=== PATIENT | male | born 2005 | race Caucasian/White ===

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

== ENCOUNTER 2024-03-03 17:04 | Emergency (ER) | payer OTHER, SELFPAY ==
[2024-03-03] VITALS (26 sets, daily range): BP systolic 117–145; BP diastolic 66–99; PULSE 100–132; RESP 17–33; TEMP 37.1; O2SAT 91–100
--- NOTE | ~2024-03-03 | XR_ITS ---
EXAMINATION: XR chest 1V portable DATE: 03/03/2024 18:50 INDICATION: Shortness of breath. TECHNIQUE: A single frontal view of the chest was obtained. COMPARISON: Chest 2 views 12/14/2021 FINDINGS: There is no pneumonia, pleural effusion, or pneumothorax. The heart size is normal. Pneumom ediastinum is noted. IMPRESSION: 1. Pneumomediastinum. Reviewed, dictated and finalized at location E. IMPRESSION: 1. Pneumomediastinum.
--- NOTE | ~2024-03-03 | CT_ITS ---
EXAMINATION: CTA chest PE protocol DATE: 03/03/2024 20:55 INDICATION: Shortness of breath. TECHNIQUE: Computed tomography angiography (CTA) of the chest was performed with 100 mL Omnipaque-350 intravenous contrast timed to evaluate the pulmonary arteries. Coronal maximum intensity projection 3D-reconstructions were created by the technologist. Automated exposure control and iterative reconst ruction technique were employed. The dose-length product was 290.37 mGy-cm. COMPARISON: None. FINDINGS: There are groundglass opacities in the upper lobes adjacent to the mediastinum, likely mild atelectasis. No pleural effusion. The heart size is normal. No pericardial effusion. There is no pul monary embolus. Pneumomediastinum is noted. There are Schmorl's nodes at multiple levels in the spine . IMPRESSION: 1. Pneumomediastinum. 2. No pulmonary embolus. Reviewed, dictated and finalized at location E.
--- NOTE | 2024-03-03 17:08 | ED.ASTHMA ---
HPI - Asthma General Chief Complaint: Asthma Stated Complaint: asthma Time Seen by Provider: 03/03/24 17:06 History of Present Illness HPI Narrative: Patient is a 18 year old male with history of asthma here with shortness of breath. Patient notes symptoms began yesterday. He has had increased wheezing as well as a cough. He has had a subjective fever and nasal congestion. No known sick contacts. He has been doing his rescue treatments at home without improvement. Patient has never required hospitalization or intubation for his asthma. He was diagnosed as an asthmatic as a young child. Last round of oral steroids was about 6 weeks ago. No nausea, vomiting, diarrhea. Related Data Home Medications Medication Instructions Recorded Confirmed albuterol sulfate 90 mcg/actuation 1 inh inhalation QID PRN SOB 12/14/21 aerosol inhaler Allergies Allergy/AdvReac Type Severity Reaction Status Date / Time No Known Allergies Allergy Verified 03/03/24 17:16 Review of Systems Review of Systems: All systems reviewed & are unremarkable except as noted in HPI and below PMFSH Past Medical History Medical History (Updated 03/06/24 @ 15:05 by Lilly Farley MD) Asthma Surgical History Surgical History (Updated 12/14/21 @ 07:56 by Dav Self MD) No history of previous surgery Social History Social History (Updated 12/14/21 @ 07:56 by Dav Self MD) Smoking status: Light tobacco smoker Exam Narrative: GENERAL: Well-appearing, well-nourished, and in mild respiratory distress. HEAD: Normocephalic, atraumatic. EYES: PERRLA and EOMI. ENT: Nares clear. Mucous membranes moist. NECK: Supple. CHEST: Bilateral wheeze, tachypnea, increased work of breathing. HEART: Tachycardic. Normal peripheral pulses. ABDOMEN: Soft, nontender, nondistended. EXTREMITIES: Normal range of motion. No edema. SKIN: Warm, dry, no rash. NEURO: No focal deficits. Alert and oriented x3. PSYCH: Normal mood and affect. Course Course Emergency Course: Chart review performed. Patient here with shortness of breath. Triage vitals normal. One prior visit in our system for asthma. Patient seen evaluated, is in some mild respiratory distress, tachypneic, tachycardic, history most consistent with acute asthma exacerbation. Will additionally do chest x-ray given subjective fever. Viral swab ordered. Will do 1 hour nebulizer as well as steroids, IVF. Patient and mother agreeable to POC. Viral swab negative. CXR shows concern for pneumomediastinum. Will do CT for further imaging. Patient revaluated, much less tachypneic on exam. Dad at bedside concerned for PE given recent drive home [place]. Suspect symptoms are all likely due to asthma however given tachycardia and plan for CT chest will do with contrast. Magnesium ordered. COVID, influenza, RSV negative. WBC of 12.5 which is non specific. Electrolytes normal, normal renal function. CTA of chest shows pneumomediastinum, no PE. On ambulatory pulse ox patient did not desaturate below 93%. Shared decision making between patient and family. Patient and family feel comfortable with patient being discharged home. Will start on prednisone burst as well as refill DuoNebs. Advised to contact primary care doctor tomorrow morning to coordinate close follow-up. Return should symptoms worsen. The results of pertinent diagnostic studies and exam findings were discussed. The patient?s provisional diagnosis and plan of care were discussed with the patient and present family. The patient and/or present family expressed understanding of the diagnosis and plan. The nurse was instructed to provide written instructions and appropriate follow-up information. The patient understands their need and responsibility to obtain additional follow-up as instructed. The risks of medications administered and prescribed were discussed with the patient and family present. Vital Signs Vital signs: Vital Signs Te
[2024-03-03] MEDS: IPRATROPIUM BR 0.02% INH SOLN 0.5 MG/2.5 ML VIAL 1.5 MG INHALATION (17:44)
[2024-03-03] MEDS: ALBUTEROL SULFATE NEB 2.5 MG/3 ML INH 15 MG INHALATION (17:44)
[2024-03-03] MEDS: methylPREDNISolone SOD SUCC 125 MG VIAL IV PUSH (18:13)
[2024-03-03] MEDS: LACTATED RINGERS 1,000 ML 999 ML IV CONT ×2 (18:13→21:38)
[2024-03-03 18:39] LABS: Influenza A QL RT-PCR Negative (Negative); Influenza B QL RT-PCR Negative (Negative); RSV RNA, RT-PCR Negative (Negative); SARS-CoV-2 RNA PCR Negative (Negative)
--- NOTE | 2024-03-03 19:17 | PC.NURSE ---
Report received from KVNG Mccain. Assumed care of patient at this time.
[2024-03-03] MEDS: MAGNESIUM SULF 2 GM/WATER 50ML 2 GM/50 ML BAG IVPB (20:17)
--- NOTE | 2024-03-03 20:33 | PC.NURSE ---
Patient taken to CT via stretcher with extra green top. Patient has IV mag going via pump.
[2024-03-03 20:35] LABS: Basophils Percent Auto 0.2 % (0.2-1.2); Eosinophils Percent Auto 0.2 % (0-4.4); Hematocrit 43.8 % (42.0-52.0); Hemoglobin 14.7 g/dL (14.0-18.0); Immature Granulocyte Absolute 0.02 K/mm3 (0.00-0.031); Immature Granulocyte Percent A 0.2 % (0-0.5); Lymphocytes Absolute Auto 0.48 K/mm3 (0.9-3.2); Lymphocytes Percent Auto 3.9 % (18.3-44.2); Mean Corpuscular HGB Conc 33.6 g/dl (32-36); Mean Corpuscular Hemoglobin 27.7 pg (26-34); Mean Corpuscular Volume 82.5 fl (80-100); Mean Platelet Volume 9.7 fl (7.4-10.4); Monocytes Absolute Auto 0.2 K/mm3 (0.1-0.6); Monocytes Percent Auto 1.6 % (2.6-8.5); Neutrophils Absolute Auto 11.7 K/mm3 (1.3-6.7); Neutrophils Percent Auto 93.9 % (45.5-73.1); Platelet Count Result 240 k/mm3 (150-375); Red Blood Count 5.31 M/mm3 (4.6-6.20); Red Cell Distribution Width 13.4 % (11.5-14.5); White Blood Count 12.5 K/mm3 (4.5-10.0)
[2024-03-03 20:43] LABS: Estimated CRCL calculation 127 ml/min; Estimated Glomerular Filt Rate > 60
[2024-03-03 20:49] LABS: Alanine Aminotransferase 30 U/L (6-50); Albumin Level 4.7 g/dL (3.7-5.6); Alkaline Phosphatase 104 U/L (58-237); Anion Gap 10 mmol/L (4-12); Aspartate Amino Transferase 27 U/L (17-59); Bilirubin,Total 0.6 mg/dL (0.2-1.3); Blood Urea Nitrogen 15 mg/dL (8-21); Calcium 9.9 mg/dL (8.9-10.7); Carbon Dioxide 23 mmol/L (22-30); Chloride 105 mmol/L (98-107); Estimated CRCL calculation 127 ml/min; Estimated Glomerular Filt Rate > 60; Glucose 125 mg/dL (65-110); Potassium 4.2 mmol/L (3.4-5.0); Sodium 138 mmol/L (134-143)
== END 2024-03-03 22:39 | disposition home or self-care (01) ==
PROVIDERS: Emergency Provider Student in an Organized Health Care Education/Training Program
DX: J45.901 Unspecified asthma with (acute) exacerbation (principal); Z20.822 Contact with and (suspected) exposure to COVID-19; F17.200 Nicotine dependence, unspecified, uncomplicated
CPT/HCPCS: 36415; 71045; 71275; 80053; 85025; 87637; 94640; 96361; 96365; 96366; 96375; 99284; J2405; J2919; J3475; J7120; Q9967